=== PATIENT | female | born 1965 | race Caucasian/White ===

== ENCOUNTER 2024-11-10 11:47 | Emergency (ER) | payer MEDICARE ==
[~2024-11-10] VITALS: Ht 154.9 cm; Wt 74.8 kg
[2024-11-10 11:49] VITALS: TEMP 98.2
[2024-11-10] MEDS ORDERED: LIPITOR10 MG PO (12:05)
[2024-11-10] MEDS ORDERED: ISOSORBIDE MONO30 MG PO (12:05)
[2024-11-10] MEDS ORDERED: ALENDRONATE SOD70 MG (12:05)
[2024-11-10] MEDS ORDERED: SERTRALINE HCL25 MG (12:05)
[2024-11-10] MEDS ORDERED: MEMANTINE HCL10 MG (12:05)
[2024-11-10] MEDS ORDERED: BASAGLAR T100 UNIT/1 (12:05)
[2024-11-10] MEDS ORDERED: METFORMIN ER1000 MG (12:05)
[2024-11-10] MEDS ORDERED: AMLODIPINE BESY10 MG PO (12:05)
[2024-11-10] MEDS ORDERED: LISINOPRIL10 MG PO (12:06)
[2024-11-10 12:09] LABS: BASOPHILS # (AUTO) 0.1 (0.0-0.1); BASOPHILS % 0.6 % (0.0-1.0); EOSINOPHILS # (AUTO) 0.3 (0.0-0.4); EOSINOPHILS % 2.7 % (0.0-6.0); HEMOGLOBIN 13.2 g/dL (12.0-16.0); LYMPHOCYTES # (AUTO) 3.6 (1.0-3.2); LYMPHOCYTES % 32.9 % (18.0-39.1); MEAN CORPUSCULAR HEMOGLOBIN 28.6 pg (28-32); MEAN CORPUSCULAR HGB CONC 32.2 g/dL (31-35); MEAN CORPUSCULAR VOLUME 88.7 fL (81-99); MONOCYTES # (AUTO) 0.5 (0.2-0.8); MONOCYTES % 4.8 % (4.4-11.3); NEUTROPHILS # (AUTO) 6.4 (2.1-6.9); NEUTROPHILS % 58.7 % (38.7-80.0); PLATELET COUNT 328 x10e3/uL (140-360); RED BLOOD COUNT 4.62 x10e6/uL (3.6-5.1); RED CELL DISTRIBUTION WIDTH 13.4 % (11.7-14.4); WHITE BLOOD COUNT 10.94 x10e3/uL (4.8-10.8)
[2024-11-10 12:14] LABS: INR 0.91; PROTHROMBIN TIME 12.8 seconds (11.9-14.5)
[2024-11-10 12:24] LABS: ALBUMIN 4.3 g/dL (3.5-5.0); ALBUMIN/GLOBULIN RATIO 1.1 (0.8-2.0); ANION GAP 20.2 mmol/L (8-16); BILIRUBIN,TOTAL 0.5 mg/dL (0.2-1.2); CALCIUM 9.7 mg/dL (8.4-10.2); CREATININE, SERUM 1.61 mg/dL (0.57-1.11); TOTAL PROTEIN 8.2 g/dL (6.5-8.1)
[2024-11-10 12:32] LABS: POTASSIUM 3.2 mmol/L (3.5-5.1); TROPONIN I < 0.001 ng/mL (0-0.300)
[2024-11-10 12:47] LABS: ETHANOL < 10.0 mg/dL (0.0-10.0)
[2024-11-10] MEDS: SODIUM CHLORIDE 0.9% 1000ML 1,000 ML IV SCH (13:50)
[2024-11-10 14:00] VITALS: PULSE 78; RESP 16; O2SAT 95
== END 2024-11-10 14:56 | disposition home or self-care (01) ==
LOC: ER 11:53
DX: R55 Syncope and collapse (principal); I10 Essential (primary) hypertension; E11.9 Type 2 diabetes mellitus without complications; E78.5 Hyperlipidemia, unspecified; F41.9 Anxiety disorder, unspecified; R94.31 Abnormal electrocardiogram [ECG] [EKG]; Z86.73 Personal history of transient ischemic attack (TIA), and cerebral infarction without residual deficits
CPT/HCPCS: 36415; 70450; 71045; 80053; 80320; 84484; 85025; 85610; 93005; 99284; J7030